=== PATIENT | female | born 1980 | race Caucasian/White ===

== ENCOUNTER 2023-10-04 10:43 | Emergency (ER) | payer OTHER, SELFPAY ==
[2023-10-04] VITALS (14 sets, daily range): BP systolic 103–112; BP diastolic 57–76; PULSE 63–68; RESP 11–20; TEMP 37; O2SAT 95–98; BMI 30.9
--- NOTE | 2023-10-04 11:16 | DI.RAD.S_ITS ---
PROCEDURE: XR CHEST 1V INDICATIONS: chest pain TECHNIQUE: One view of the chest was acquired. COMPARISON: None. FINDINGS: Surgical changes and devices: Left chest wall generator with intravenous lead. Lungs and pleura: Lungs are clear. No pleural effusions or pneumothorax. Mediastinum: Mediastinal contours appear normal. Heart size is normal. Bones and chest wall: No suspicious bony lesions. Overlying soft tissues appear unremarkable. IMPRESSION: No acute cardiopulmonary abnormality is seen. Dictated by: Remigio Stuart M.D. on 10/04/2023 at 12:35 Approved by: Remigio Stuart M.D. on 10/04/2023 at 12:35
--- NOTE | 2023-10-04 11:21 | DI.CT.S_ITS ---
PROCEDURE: CT FACIAL BONES WO CON INDICATIONS: syncope, bruising pain, increased pain every where, hx defib TECHNIQUE: Noncontrast 2.5 mm thick axial images acquired from the mandible through the frontal sinuses, with coronal and sagittal reformatting. For radiation dose reduction, the following was used: automated exposure control, adjustment of mA and/or kV according to patient size. COMPARISON: None. FINDINGS: Image quality: Excellent. Bones and teeth: Orbital garcia are intact. Sinus garcia show no fracture or deformity. Nasal bones and septum are intact. Visualized portions of the mandible demonstrate no fractures or subluxation. Zygomatic arches are intact. Pterygoid plates are intact. Visualized portions of the skull base and auditory canals are intact. Poor dentition, with multiple caries. Sinuses: Paranasal sinuses are aerated, without fluid levels, mucosal thickening, or mucoceles. Mastoid air cells are aerated. Soft tissues: Right-sided periorbital hematoma, without intraorbital extension. Vascular: Visualized vascular structures appear normal in the absence of contrast. Bony vascular foramina and canals are intact. IMPRESSION: Right-sided periorbital hematoma, without intraorbital extension. Dictated by: Remigio Stuart M.D. on 10/04/2023 at 12:46 Approved by: Remigio Stuart M.D. on 10/04/2023 at 12:48
--- NOTE | 2023-10-04 11:21 | DI.CT.S_ITS ---
PROCEDURE: CT ABDOMEN PELVIS W CON INDICATIONS: syncope, bruising pain, increased pain every where, hx cva TECHNIQUE: After the administration of intravenous contrast, axial sections acquired from the lung bases to the pubic symphysis. Coronal and sagittal reformats were performed. For radiation dose reduction, the following was used: automated exposure control, adjustment of mA and/or kV according to patient size. COMPARISON: None. FINDINGS: Image quality: Diagnostic. Lower Chest: No significant findings. ABDOMEN: Liver: No solid mass. Gallbladder: Cholelithiasis without wall thickening or adjacent fat stranding to suggest acute cholecystitis. Biliary ducts: No biliary dilation. Pancreas: No ductal dilation. Spleen: Size is within normal limits. Adrenal Glands: No adrenal nodules. Kidneys and Ureters: No hydronephrosis. No solid mass. No complex renal cystic lesion which requires follow up. Stomach and Bowel: Normal colonic caliber, without significant wall thickening. Appendix not identified, but there is no pericecal fat stranding to suggest appendicitis. Colonic diverticulosis without evidence of diverticulitis. Peritoneum: No abnormal intraperitoneal fluid. No free air. Ventral Wall: No significant ventral hernia. Abdominal Nodes: No retroperitoneal or mesenteric adenopathy by size criteria. Vessels: Aorta and inferior vena cava are normal in size. PELVIS: Pelvic Organs: Left ovarian cystic lesion with thin internal septations measuring 9.0 x 11.5 cm. Bladder: No bladder wall thickening, accounting for underdistention. Pelvic Nodes: No enlarged lymph nodes. Miscellaneous: No inguinal hernias are seen. Bones: No aggressive osseous abnormality. IMPRESSION: No acute abnormality. Left ovarian cystic lesion with thin internal septations measuring 9.0 x 1.5 cm. 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 Recommend gynecologic oncology referral for further management. Cholelithiasis without wall thickening or adjacent fat stranding to suggest acute cholecystitis. No nephrolithiasis. No diverticulitis. Dictated by: Remigio Stuart M.D. on 10/04/2023 at 12:54 Approved by: Remigio Stuart M.D. on 10/04/2023 at 12:59
--- NOTE | 2023-10-04 11:21 | DI.CT.S_ITS ---
PROCEDURE: CT CERVICAL SPINE WO CON INDICATIONS: syncope, bruising pain, increased pain every where, hx cva TECHNIQUE: Noncontrast 3 mm thick sections acquired from the skull base to the T4 level. Sagittal and coronal reformats were then constructed. For radiation dose reduction, the following was used: automated exposure control, adjustment of mA and/or kV according to patient size. COMPARISON: None. FINDINGS: Image quality: Excellent. Bones: No fractures or dislocations. Visualized superior ribs are intact. 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 Soft tissues: Prevertebral soft tissues are normal in thickness. No paravertebral hematomas. No apical pneumothoraces. IMPRESSION: No displaced fracture or traumatic subluxation. Moderate spinal canal narrowing at C6-7 and C5-6 due to posterior longitudinal ligament calcification. Dictated by: Remigio Stuart M.D. on 10/04/2023 at 12:42 Approved by: Remigio Stuart M.D. on 10/04/2023 at 12:46
--- NOTE | 2023-10-04 11:21 | DI.CT.S_ITS ---
PROCEDURE: CT HEAD/BRAIN WO CON INDICATIONS: syncope, bruising pain, increased pain every where, hx cva TECHNIQUE: Noncontrast 4.5 mm thick angled axial sections acquired from the foramen magnum to the vertex, with coronal and sagittal reformats. For radiation dose reduction, the following was used: automated exposure control, adjustment of mA and/or kV according to patient size. COMPARISON: None. FINDINGS: Image quality: Suboptimal due to motion artifact. CSF spaces: Basal cisterns are patent. No extra-axial fluid collections. Ventricles are normal in size and shape. Brain: No midline shift. No intracranial masses or hemorrhage. Nye-white matter interface is normal. Prior right MCA territory infarct, with encephalomalacia. Skull and face: Periorbital hematoma. Sinuses: Visualized sinuses and mastoids are clear. IMPRESSION: No acute intracranial pathology. Periorbital hematoma. Dictated by: Remigio Stuart M.D. on 10/04/2023 at 12:33 Approved by: Remigio Stuart M.D. on 10/04/2023 at 12:34
--- NOTE | 2023-10-04 11:21 | DI.CT.S_ITS ---
PROCEDURE: CT ANGIO CHEST PE PROTOCOL INDICATIONS: syncope, bruising pain, increased pain every where, hx cva TECHNIQUE: After the administration of intravenous contrast, 2 mm thick sections acquired from the pulmonary apices to the posterior costophrenic angles. 3-dimensional maximum intensity projection (MIP) coronal and sagittal reformats were then acquired through the thorax. For radiation dose reduction, the following was used: automated exposure control, adjustment of mA and/or kV according to patient size. COMPARISON: None. FINDINGS: Image quality: Suboptimal due to motion artifact. Pulmonary arteries: Pulmonary arteries are normal in size, and demonstrate no intraluminal filling defects to suggest central pulmonary embolism. Lower Neck: No enlarged lymph nodes. Thyroid: No thyroid nodules which require sonographic follow up, per consensus guidelines. Axillae: No enlarged lymph nodes. Chest Wall: Left chest wall generator with intravenous lead. Bones: Unremarkable. Lungs and Pleura: No pneumothorax or pleural effusions. No consolidation or suspicious nodules. Heart: Heart size is normal. No pericardial effusion. Thoracic Vessels: No aortic aneurysm. Mediastinum and [place]: No enlarged lymph nodes. Esophagus: No wall thickening. No hiatal hernia. Upper Abdomen: Visualized upper abdomen solid organs and bowel loops appear normal. IMPRESSION: Moderately suboptimal evaluation due to motion artifact. No pulmonary embolus. No acute cardiopulmonary process. Dictated by: Remigio Stuart M.D. on 10/04/2023 at 12:48 Approved by: Remigio Stuart M.D. on 10/04/2023 at 12:50
--- NOTE | 2023-10-04 11:23 | ED.SYNCOPE ---
HPI - Syncope General Chief Complaint: Syncope Stated Complaint: Syncope Time Seen by Provider: 10/04/23 10:45 Source: patient, family and EMS Mode of arrival: EMS Limitations: no limitations History of Present Illness HPI narrative: 42-year-old female who presents with complaint of possible syncopal episode. Patient states she has had some dizziness on and off as well as some chest discomfort for the past several days describes occasional shortness of breath. Today she was standing on her deck she states she felt dizzy went to use her vape and woke up on the deck. Patient has bruising around her right eye, no decreased vision. She describes pain everywhere. She has had problems with hyperesthesia after a stroke particularly on the left side with chronic left-sided deficit and amaya-neglect. Patient describes pain in her neck as well as her back. She describes no chest pain currently but on and off over the past several days and last night some persistent shortness of breath and dizziness but no recent syncope. She had some nausea but no vomiting. She denies any diarrhea or constipation, no loss of bowel or bladder control no recent urinary symptoms. Patient does not recall her defibrillator firing. She did have contact from the team for her defibrillator who stated that she had an event unclear if it was her pacemaker or defibrillator but they had called her about 2 weeks ago that it had gone off in her sleep. Patient is on aspirin daily no other anticoagulants, she is on carvedilol as well as multiple medications for neuropathy a/paresthesias. She has had a prior stroke with left-sided deficit secondary to her device placement per family. Patient has had prior pacemaker/defibrillator no cardiac stents, she has had . No known drug allergies. She does vape tobacco, occasional alcohol but denies any today. No recreational drugs or marijuana but uses CBD on occasion. Her Road Equipment Operator was Dr. Lomas who placed her device at [facility]. She has recently established with Dr. Baum for cardiology. Primary care is Patient arrived via EMS had 2 mg of morphine but her blood pressure dropped to the 80s so had not had any additional did have 500 mL of saline. They report no pacing or bearing of defibrillator. Patient has had present at bedside also gives additional history. Related Data Home Medications Medication Instructions Recorded Confirmed aspirin 81 mg tablet 81 mg PO DAILY 10/04/23 10/04/23 carvedilol 3.125 mg tablet 3.125 mg PO BID 10/04/23 10/04/23 duloxetine 30 mg capsule,delayed 30 mg PO QPM 10/04/23 10/04/23 release (Cymbalta) pregabalin 200 mg capsule 200 mg PO 3XD 10/04/23 10/04/23 sennosides 8.6 mg-docusate sodium 1 tab-cap PO BEDTIME 10/04/23 10/04/23 50 mg tablet topiramate 50 mg tablet 50 mg PO DAILY 10/04/23 10/04/23 Allergies Allergy/AdvReac Type Severity Reaction Status Date / Time No Known Drug Allergies Allergy Verified 10/04/23 11:59 Review of Systems Review of Systems ROS Unobtainable: All systems reviewed & are unremarkable except as noted in HPI and below Patient History Social History Smoking Status: Current every day smoker Smoking Status: Current every day smoker tobacco type: vaping alcohol intake frequency: 0-2 drinks per day Substance Use Type: does not use Exam Narrative Exam Narrative: GEN: C-collar prior to arrival. Patient appears in moderate distress. HEAD: No evidence of trauma, no raccoon/[place] sign. NECK: Nontender, painless range of motion, trachea midline Positive for Nexus criteria, no line tenderness, positive for distracting injury, no altered mental status, neuro deficit, recent EtOH. EYES: PERRLA, EOMI ENT: External inspection normal, trachea is midline, TM's are normal no hemotypanum, Nares are clear, no septal hematoma, no dental or oral injury, airway is normal and with normal occlusion, No bony tenderness RESP: Chest is nontender and has symmetric movement, no ecchymosis, breath sounds are normal no crackles, wheezes or rales CVS: Heart sounds are normal, no murmur noted, No JVD. ABG/GI: Nontender, soft, normal bowel sounds, no distention, no organomegaly, pelvic rock is negative NEURO: Oriented AOx3, neuro is grossly intact, sensation and motor is normal all 4 extremities moving, cranial nerves II through XII are intact, GCS is 15 PSYCH: Normal mood and affect SKIN: Intact, warm and dry, no crepitus and without decubitus BACK: No CVA tenderness, no vertebral tenderness, no step-off's, no crepitus EXT: Atraumatic, patient does not have any tenderness to legs but is very hypersensitive to any very light touch even access to her line across her upper extremities, but also generalized. She does have movement of bilateral extremities little bit less of her left upper arm. No pedal edema, normal color and temperature Initial Vital Signs Initial Vital Signs: Vital Signs Temperature 98.6 F 10/04/23 10:40 Pulse Rate 65 10/04/23 10:40 Respiratory Rate 20 10/04/23 10:40 Blood Pressure 112/76 10/04/23 10:40 Pulse Oximetry 98 10/04/23 10:40 Oxygen Delivery Method Room Air 10/04/23 10:40 Course Orders Ordered: ED Orders 10/04/23 11:16 XR chest 1V Stat 10/04/23 11:21 CT abdomen pelvis w con Stat CT angio chest PE protocol Stat CT cervical spine wo con Stat CT facial bones wo con Stat CT head/brain wo con Stat 10/04/23 11:25 Complete Blood Count AUTO DIFF Stat Comprehensive Metabolic Panel Stat ETOH [Ethanol (ETOH)] Stat Lipase Stat Magnesium Stat PTT Partial Thromboplastin Alli Stat Prothrombin Time INR Stat Troponin & CK Cardiac Panel Stat 10/04/23 13:02 EKG-12 Lead Stat 10/04/23 13:20 Trop I [Troponin I] Stat Ondansetron HCl (Ondansetron 4 Mg/2 Ml Inj) 4 mg IV Q6HR PRN PRN Reason: Nausea And Vomiting Sodium Chloride (Sodium Chloride 0.9% Flush) 10 ml IV BID NORMAN Sodium Chloride (Sodium Chloride 0.9% Flush) 10 ml IV PRN PRN PRN Reason: Flush Last Admin: 10/04/23 11:30 Dose: 10 ml Documented By: WU Discontinued Medications Acetaminophen (Acetaminophen 325 Mg Tablet) 975 mg PO NOW ONE Stop: 10/04/23 18:42 Last Admin: 10/04/23 18:49 Dose: 975 mg Documented By: CELINE Fentanyl (Fentanyl 100 Mcg/2 Ml Inj) 50 mcg IV NOW ONE Stop: 10/04/23 11:22 Last Admin: 10/04/23 11:30 Dose: 50 mcg Documented By: WU Sodium Chloride (Normal Saline 0.9%) 1,000 mls @ 1,000 mls/hr IV BOLUS ONE Stop: 10/04/23 12:20 Last Infusion: 10/04/23 12:58 Dose: Infused Documented By: Admin: 10/04/23 11:31 Dose: 1,000 mls/hr Documented By: WU Calcium Gluconate 4.65 meq/ (Sodium Chloride) 60 mls @ 180 mls/hr IV NOW ONE Stop: 10/04/23 12:45 Last Infusion: 10/04/23 14:33 Dose: Infused Documented By: Admin: 10/04/23 14:04 Dose: 180 mls/hr Documented By: WU Ketorolac Tromethamine (Ketorolac 30 Mg/Ml Vial) 15 mg IV NOW ONE Stop: 10/04/23 13:58 Last Admin: 10/04/23 14:14 Dose: 15 mg Documented By: CELINE Lorazepam (Lorazepam 2 Mg/Ml Inj) 1 mg IV NOW ONE Stop: 10/04/23 12:00 Last Admin: 10/04/23 12:06 Dose: 1 mg Documented By: POORNIMA Morphine Sulfate (Morphine 4 Mg/Ml Inj) 4 mg IV NOW ONE Stop: 10/04/23 13:57 Last Admin: 10/04/23 14:14 Dose: 4 mg Documented By: CELINE Vital Signs Vital signs: Vital Signs - 8 hr 10/04/23 17:00 10/04/23 17:30 10/04/23 18:00 Pulse Rate 63 63 64 Respiratory Rate 13 13 13 Blood Pressure Pulse Oximetry 97 97 96 10/04/23 18:30 10/04/23 18:35 10/04/23 18:35 Pulse Rate 66 67 Respiratory Rate 13 12 Blood Pressure 103/58 L Pulse Oximetry 96 98 MDM - Syncope Lab Data 10/04/23 11:25 10/04/23 11:25 Labs: Lab Results 10/04/23 10/04/23 Range/Units 11:25 13:20 WBC 8.5 (4.5-11.0) X10^3/uL RBC 4.63 (4.0-5.2) X10^6/uL Hgb 11.1 L (12.0-16.0) g/dL Hct 34.5 L (36-46) % MCV 74.5 L (80-100) fL MCH 23.9 L (26-34) PG MCHC 32.1 (30-36) % RDW 18.5 H (11.6-14.8) % Plt Count 296 (150-400) X10^3/uL Neut % (Auto) 77.1 H (50-75) % Lymph % (Auto) 13.8 L (25-40) % [place] % (Auto) 6.1 (3-14) % Eos % (Auto) 1.0 L (2-4) % Baso % (Auto) 2.0 (0-2) % Neut # (Auto) 6600 (4112-5904) /uL Lymph # (Auto) 1200 (7193-9181) /uL [place] # (Auto) 500 (0-900) /uL Eos # (Auto) 100 (0-450) /uL Baso # (Auto) 200 H (0-100) /uL PT 11.5 (9.4-12.5) SECONDS INR 1.0 (0.9-1.3) APTT 31 (25.1-36.5) SECONDS Sodium 140 (137-145) mmol/L Potassium 4.3 (3.4-5.1) mmol/L Chloride 115 H (98-107) mmol/L Carbon Dioxide 18 L (22-32) mmol/L BUN 11 (7-17) mg/dL Creatinine 0.63 (0.52-1.04) mg/dL Estimated GFR > 60 (>60) mL/min BUN/Creatinine Ratio 17.5 (6-22) Glucose 95 (70-100) mg/dL Calcium 7.9 L (8.4-10.2) mg/dL Magnesium 2.2 (1.6-2.3) mg/dL Total Bilirubin 0.3 (0.2-1.3) mg/dL AST 29 (14-36) IU/L ALT 34 (<35) IU/L Alkaline Phosphatase 57 (38-126) U/L Total Creatine Kinase 109 (30-135) U/L Troponin I < 0.012 < 0.012 (0.01-0.034) ng/mL Total Protein 6.5 (6.3-8.2) g/dL Albumin 3.7 (3.5-5.0) g/dL Globulin 2.8 (1.7-4.1) g/dL Albumin/Globulin Ratio 1.3 (1.0-2.8) Lipase 125 (23-300) U/L Ethyl Alcohol < 10 ( - 10) mg/dL ECG Data Attestation: I personally reviewed and interpreted this ECG as follows: Prior ECG tracings: not available for review Interpretation: Sinus rhythm rate of 77 GA 172 QRS is 70 QTC of 445. No acute ST elevation or depression. I do not have any priors for comparison. MDM Narrative Medical decision making narrative: 42-year-old female what had sounds like a syncopal episode patient does have a cardiac history had cardiac arrest has a defibrillator pacemaker in place she was told they never found the cause. Patient did have a stroke after interventions and has chronic left weakness, neglect, [place] paresthesias. She is complaining now of right and left upper extremity pain with any sort of light touch very similar to her left side as well as generalized pain throughout. Patient was hypotensive in the field per EMS did receive 2 mg of morphine which made her more so and 500 mL bolus of fluid. She is received fluids here has had improvement. Patient had head CT which shows chronic changes but no acute change, CT C-spine which shows no obvious fracture, facial bones which show hematoma/bruising but no fracture, CT abdomen pelvis and CT PE which show no blood clot but do show a left ovarian cyst with septations measuring 9 x 1.5 cm concerning for mucinous neoplasm and needs follow up with Gynecology/Oncology as well as cholelithiasis without wall thickening or fat stranding. Did discuss with patient's that she does need follow-up for the large ovarian cyst. Labs show hemoglobin of 11 white count 8.5, appears to be microcytic platelets of 296. Coags are negative, sodium is 140 potassium 4.3 chloride 114 with a CO2 of 18 BUN of 11 creatinine 0.63 calcium 7.9 Mag was 2.2 with total CK of 109- troponin negative LFTs. ETOH is less than 10. Troponin was repeated and is negative. EKG shows sinus rhythm. Patient has pacemaker/defibrillator was interrogated, shows 1 shock at 9:14 a.m. today which is consistent with a when patient had her syncopal episode. Patient did have loss of consciousness and does not recall the shock. Spoke with cardiology, Dr. Martinez, reviewed interrogation patient had shock but not ATP. Dr. Martinez reviewed with tech. She would like for patient to be transferred to [facility] for antiarrhythmic therapy. Would like for us to hold off on any amiodarone would prefer sotalol or mexilatine but asked that we hold off until patient has transferred. She does recommend a PCU bed. If patient were to become unstable she would prefer lidocaine for antiarrhythmic. SPoke with Dr. Orozco, hospitalist at [facility] accepts for transfer. Patient signed out to Dr. Brunson while awaiting transfer. Discussed recommendations from cardiology. Goal for transfer. Discharge Plan Departure Patient Disposition: [facility] Clinical Impression: Syncope, Idiopathic ventricular fibrillation, Ovarian cyst Prescriptions: No Action sennosides-docusate sodium [Senna Laxative-Stool Softener] 8.6-50 mg Tablet 1 tab-cap PO BEDTIME carvedilol 3.125 mg tablet 3.125 mg PO BID aspirin 81 mg Tablet 81 mg PO DAILY topiramate 50 mg tablet 50 mg PO DAILY duloxetine [Cymbalta] 30 mg capsule,delayed release(DR/EC) 30 mg PO QPM pregabalin 200 mg capsule 200 mg PO 3XD
[2023-10-04] MEDS: fentaNYL 100 MCG/2 ML INJ 50 MCG IV (11:30)
[2023-10-04] MEDS: SODIUM CHLORIDE 0.9% FLUSH 10 ML IV (11:30)
[2023-10-04] MEDS: SODIUM CHLORIDE 0.9% 1,000 ML 1000 ML IV (11:31)
[2023-10-04 11:35] LABS: Add Manual Diff / Slide Review NO; Basophils Absolute Auto 200 /uL (0-100); Eosinophils Absolute Auto 100 /uL (0-450); Hematocrit 34.5 % (36-46); Hemoglobin 11.1 g/dL (12.0-16.0); Lymphocytes Absolute Auto 1200 /uL (1100-4500); Lymphocytes Percent Auto 13.8 % (25-40); Mean Corpuscular HGB Conc 32.1 % (30-36); Mean Corpuscular Hemoglobin 23.9 PG (26-34); Mean Corpuscular Volume 74.5 fL (80-100); Monocytes Absolute Auto 500 /uL (0-900); Monocytes Percent Auto 6.1 % (3-14); Neutrophils Absolute Auto 6600 /uL (1500-7000); Neutrophils Percent Auto 77.1 % (50-75); Platelet Count 296 X10^3/uL (150-400); Red Blood Cell Count 4.63 X10^6/uL (4.0-5.2); Red Cell Distribution Width 18.5 % (11.6-14.8); White Blood Cell Count 8.5 X10^3/uL (4.5-11.0)
[2023-10-04 11:40] LABS: Prothrombin Time 11.5 SECONDS (9.4-12.5)
[2023-10-04 11:43] LABS: PTT Partial Thromboplastin Tim 31 SECONDS (25.1-36.5)
[2023-10-04 11:44] LABS: Alanine Aminotransferase 34 IU/L (<35); Albumin 3.7 g/dL (3.5-5.0); Albumin Globulin Ratio 1.3 (1.0-2.8); Alkaline Phosphatase 57 U/L (38-126); Aspartate Aminotransferase 29 IU/L (14-36); BUN Creatinine Ratio 17.5 (6-22); Bilirubin Total 0.3 mg/dL (0.2-1.3); Blood Urea Nitrogen 11 mg/dL (7-17); Calcium 7.9 mg/dL (8.4-10.2); Carbon Dioxide 18 mmol/L (22-32); Chloride 115 mmol/L (98-107); Creatine Kinase 109 U/L (30-135); Estimated Glomerular Filt Rate > 60 mL/min (>60); Globulin 2.8 g/dL (1.7-4.1); Glucose 95 mg/dL (70-100); HEMOLYSIS < 15 (0-50); Lipase 125 U/L (23-300); Magnesium 2.2 mg/dL (1.6-2.3); Potassium 4.3 mmol/L (3.4-5.1); Sodium 140 mmol/L (137-145); Total Protein 6.5 g/dL (6.3-8.2)
--- NOTE | 2023-10-04 11:44 | PC.NURSE ---
Pt arrived to ED via [facility] for syncopal episode. Pt went outside to use her vape and fainted. Does not remember falling but hit her head. C/o 10/10 pain in her head, neck, bilateral UE, and complains that she has numbness and tingling bilaterally in LE and arrived to dept in c-spine precautions. Pt has full ROM in all 4 extremities and neuro intact. Pt a&ox4 and answers all questions appropriately. Pt arrived to ED shouting in pain. EMS reports giving 2mg of morphine during transport and pt reports no pain relief. Pt has hx of stroke, defib pacemaker and DE. Dr Ospina at bedside during triage.
[2023-10-04 11:45] LABS: Ethanol (ETOH) < 10 mg/dL
[2023-10-04 11:56] LABS: Troponin I < 0.012 ng/mL (0.01-0.034)
[2023-10-04] MEDS: LORazepam 2 MG/ML INJ 1 MG IV (12:06)
--- NOTE | 2023-10-04 13:40 | PC.NURSE ---
Addendum entered by Mode Ren R.N. 10/04/23 15:21: Pt reports information sent to [employer]. Called [employer] and spoke to Stormy who said the information would be faxed over to [phone]. Original Note: Attempted to interrogate patient's implantable Terell device. Unsuccessful. Called [employer] help line who stated device was so new and needed to be interrogated using patient's livia on their phone. Then told to call [employer] back and they will fax over information once sent. Told patient and she said she would use the livia to interrogate the device.
[2023-10-04 13:48] LABS: Troponin I < 0.012 ng/mL (0.01-0.034)
[2023-10-04] MEDS: CALCIUM GLUCONATE 4.65 MEQ in SODIUM CHLORIDE 0.9% 50 ML 180 MEQ IV (14:04)
[2023-10-04] MEDS: MORPHINE 4 MG/ML INJ IV (14:14)
[2023-10-04] MEDS: KETOROLAC 30 MG/ML VIAL 15 MG IV (14:14)
--- NOTE | 2023-10-04 15:58 | PC.NURSE ---
Pt c/o 03/17 pain and that she has numbness and tingling in her legs and feet. Pt asked for bedpan and unable to urinate while sitting on bedpan. States that she is too weak and tired to try using the commode and states that she cannot move her LE. Neuro exam performed and pt has equal sensation bilaterally on UE & LE and shouted in pain when legs were touched. Dr Ospina notified of pt status. Pt a&ox4.
[2023-10-04] MEDS: ACETAMINOPHEN 325 MG TABLET 975 MG PO (18:49)
--- NOTE | 2023-10-04 19:35 | PC.NURSE ---
Allowed pt to sleep.
--- NOTE | 2023-10-04 21:09 | PC.NURSE ---
Report given to [facility] [employer] [phone]
[2023-10-04] MEDS: OXYCODONE IR 5 MG TABLET PO (21:18)
== END 2023-10-04 22:38 | disposition short-term general hospital (02) ==
PROVIDERS: Emergency Provider Emergency Medicine
DX: R55 Syncope and collapse (principal); I49.01 Ventricular fibrillation; N83.202 Unspecified ovarian cyst, left side; R07.9 Chest pain, unspecified; Z95.0 Presence of cardiac pacemaker
CPT/HCPCS: 36415; 70450; 70486; 71045; 71275; 72125; 74177; 80053; 80320; 82550; 83690; 83735; 84484; 85025; 85610; 85730; 93005; 96361; 96374; 96375; 99284; J0612; J1885; J2060; J2270; J3010; Q9967

== ENCOUNTER 2024-05-10 04:28 | Emergency (ER) | payer OTHER, MEDICAID, SELFPAY ==
[2024-05-10 04:33] VITALS: BP 113/73; PULSE 94; RESP 24; O2SAT 100
--- NOTE | 2024-05-10 04:34 | DI.CT.S_ITS ---
PROCEDURE: CT CERVICAL SPINE WO CON INDICATIONS: GLF ON ELIQUIS, HEAD INJ TECHNIQUE: Noncontrast 3 mm thick sections acquired from the skull base to the T4 level. Sagittal and coronal reformats were then constructed. For radiation dose reduction, the following was used: automated exposure control, adjustment of mA and/or kV according to patient size. COMPARISON: [facility], CT, CT CERVICAL SPINE WO CON, 10/04/2023, 11:43. FINDINGS: Image quality: Excellent. Bones: Remote multilevel posterior decompressive laminectomy spanning from C4 through C7 with posterior lateral sebas and facet screw fixation at C4 through C6 and ACDF at C4 through C7. No evidence of hardware failure or loosening. No fractures or dislocations. Visualized superior ribs are intact. Soft tissues: Prevertebral soft tissues are normal in thickness. No paravertebral hematomas. No apical pneumothoraces. IMPRESSION: 1. No acute displaced cervical fracture or traumatic subluxation. 2. Expected appearance of surgical hardware. Comment: Final report is concordant with preliminary interpretation provided by [facility]. Dictated by: Cristian Sharif M.D. on 05/10/2024 at 7:43 Approved by: Cristian Sharif M.D. on 05/10/2024 at 7:49
--- NOTE | 2024-05-10 04:35 | DI.CT.S_ITS ---
PROCEDURE: CT HEAD/BRAIN WO CON INDICATIONS: GLF, HEAD INJ ON ELIQUIS TECHNIQUE: Noncontrast 4.5 mm thick angled axial sections acquired from the foramen magnum to the vertex, with coronal and sagittal reformats. For radiation dose reduction, the following was used: automated exposure control, adjustment of mA and/or kV according to patient size. COMPARISON: [facility], CT, CT HEAD/BRAIN WO CON, 10/04/2023, 11:43. FINDINGS: Image quality: Diagnostic. CSF spaces: Basal cisterns are patent. No extra-axial fluid collections. The ventricles are symmetric in size and shape. Brain: Stable findings. No intracranial bleeds or masses. There is cerebral volume loss for age, with resultant ventricular and sulcal prominence. There are periventricular and deep white matter chronic small vessel ischemic changes. Old moderately large right MCA distribution infarct with encephalomalacia. There is intracranial internal carotid artery atherosclerosis. Skull and face: Calvarium and visualized facial bones appear intact, without suspicious lesions. Sinuses: Visualized sinuses and mastoids are clear. IMPRESSION: Stable findings. Old right MCA distribution infarct. No acute intracranial process. Comment: Final report is concordant with preliminary interpretation provided by [facility]. Dictated by: Cristian Sharif M.D. on 05/10/2024 at 7:41 Approved by: Cristian Sharif M.D. on 05/10/2024 at 7:43
--- NOTE | 2024-05-10 04:36 | EKG_ITS ---
[address] [address] Test Date: 2024-05-10 Pat Name: Yulissa Watson Department: [facility] Room: Gender: Female Patient Account Liaison: CARLA : 1980 Requested By: Order Number: [id number] Reading MD: Modesto Salmeron MD Measurements Intervals [place] Rate: 69 P: 41 ND: 144 QRS: 47 QRSD: 72 T: 51 QT: 472 QTc: 505 Interpretive Statements Normal sinus rhythm Nonspecific T wave abnormality Electronically Signed On 05-10-2024 10:35:57 PST by Modesto Salmeron MD
--- NOTE | 2024-05-10 04:37 | ED.SYNCOPE ---
HPI - Syncope <Samantha Brunson MD - Last Filed: 05/10/24 20:28> General Chief Complaint: Trauma Stated Complaint: Fall Time Seen by Provider: 05/10/24 04:33 History of Present Illness HPI narrative: 43yoF with PMH V-fib arrist s/p AICD in place on Eliquis (placed by Dr. Lomas at [facility]) presents by EMS from home for syncopal episode. Hx obtained mostly from EMS as patient arrived extremely agitated, yelling at EMS staff and screaming at ED staff to leave the ED room. Per EMS the patient was getting up from the toilet when she had a syncopal episode. Patient repeatedly attempting to remove her C-collar on arrival telling EMS you're not the boss, I'M THE BOSS. When asked to verify name and date of patient told reverse unit operator fuck off I'm not telling you shit. Patient screaming at myself and nursing staff, refusing vitals and demanding that her come back to the room. Records obtained from [facility] by Dr. Baum provide more PMH. Cardiology encounter dated 12/25/2023: 43yoF Caucasion female with V-fib cardiac arrest August 2022 attributed possibly to vaping. No CAD on subsequent heart catheterization (08/24/22). [facility] single-chamber AICD insertion at [facility], iatrogenic right internal carotid artery thrombus due to right carotid artery puncture at the time of VFib resuscitation at [facility], large Right MCA territory infarct s/p thrombectomy, hypertriglyceridemia. [facility] admission on October 04, 2023 due to VFib episode in the setting of vaping, at that time also found to have pulmonary embolism and cervical cord compression. Patient was initiated on mexiletine at [facility]. Subsequently transferred to [facility]. IVC filter placed 10/09/23 followed by C4-6 PSIF 10/13/23. After patient's surgery she had recurrence of V-fib on mexilitine and so mexilitine was discontinued and she was initiated on quinidine on November 09, 2023. At time of cardiology consultation on 12/24 patient was doing well on quinidine. At that time patient was being evaluated at [facility] for possible VFib ablation. Related Data Home Medications Medication Instructions Recorded Confirmed aspirin 81 mg tablet 81 mg PO DAILY 10/04/23 10/04/23 carvedilol 3.125 mg tablet 3.125 mg PO BID 10/04/23 10/04/23 duloxetine 30 mg capsule,delayed 30 mg PO QPM 10/04/23 10/04/23 release (Cymbalta) pregabalin 200 mg capsule 200 mg PO 3XD 10/04/23 10/04/23 sennosides 8.6 mg-docusate sodium 1 tab-cap PO BEDTIME 10/04/23 10/04/23 50 mg tablet topiramate 50 mg tablet 50 mg PO DAILY 10/04/23 10/04/23 Allergies Allergy/AdvReac Type Severity Reaction Status Date / Time No Known Drug Allergies Allergy Verified 10/04/23 11:59 Patient History <Samantha Brunson MD - Last Filed: 05/10/24 20:28> Social History Smoking Status: Current every day smoker Smoking Status: Current every day smoker tobacco type: vaping alcohol intake frequency: 0-2 drinks per day Substance Use Type: does not use Exam <Samantha Brunson MD - Last Filed: 05/10/24 20:28> Initial Vital Signs Initial Vital Signs: Vital Signs Pulse Rate 94 H 05/10/24 04:33 Respiratory Rate 24 05/10/24 04:33 Blood Pressure 113/73 05/10/24 04:33 Pulse Oximetry 100 05/10/24 04:33 Oxygen Delivery Method Room Air 05/10/24 04:33 Const: Awake, agitated, yelling at EMS and nursing staff HEENT: No stepoffs, PERRL, C-collar incorrectly in place - patient grabbing at collar to remove the device Cardiac: regular rate, regular rhythm RESP: unlabored, no wheezes GI: Soft, nontender, nondistended Skin: Warm, Dry, intact, no rashes Neuro: Oriented to self, not following commands, moving all extremities <Samantha Ospina DO - Last Filed: 05/10/24 09:42> Initial Vital Signs Initial Vital Signs: Vital Signs Pulse Rate 94 H 05/10/24 04:33 Respiratory Rate 24 05/10/24 04:33 Blood Pressure 113/73 05/10/24 04:33 Pulse Oximetry 100 05/10/24 04:33 Oxygen Delivery Method Room Air 05/10/24 04:33 Course <Samantha Brunson MD - Last Filed: 05/10/24 20:28> Orders Ordered: Discontinued Medications Diphenhydramine HCl (Diphenhydramine 50 Mg/Ml Vial) 50 mg IM NOW ONE Stop: 05/10/24 04:44 Last Admin: 05/10/24 04:52 Dose: 50 mg Documented By: KENISHA Haloperidol (Haloperidol 5 Mg/Ml Vial) 5 mg IM NOW ONE Stop: 05/10/24 04:42 Last Admin: 05/10/24 04:52 Dose: 5 mg Documented By: KENISHA Vital Signs Vital signs: Vital Signs - 8 hr 05/10/24 04:33 05/10/24 08:03 Temperature 97.8 F Pulse Rate 94 H 83 Respiratory Rate 24 16 Blood Pressure 113/73 139/69 Pulse Oximetry 100 98 Oxygen Delivery Method Room Air Room Air <Samantha Ospina DO - Last Filed: 05/10/24 09:42> Orders Ordered: Discontinued Medications Diphenhydramine HCl (Diphenhydramine 50 Mg/Ml Vial) 50 mg IM NOW ONE Stop: 05/10/24 04:44 Last Admin: 05/10/24 04:52 Dose: 50 mg Documented By: KENISHA Haloperidol (Haloperidol 5 Mg/Ml Vial) 5 mg IM NOW ONE Stop: 05/10/24 04:42 Last Admin: 05/10/24 04:52 Dose: 5 mg Documented By: KENISHA Vital Signs Vital signs: Vital Signs - 8 hr 05/10/24 04:33 05/10/24 08:03 Temperature 97.8 F Pulse Rate 94 H 83 Respiratory Rate 24 16 Blood Pressure 113/73 139/69 Pulse Oximetry 100 98 Oxygen Delivery Method Room Air Room Air MDM - Syncope <Samantha Brunson MD - Last Filed: 05/10/24 20:28> ECG Data Interpretation: Normal sinus rhythm at 69 bpm. Normal OR. No ST-T wave changes. MDM Narrative Medical decision making narrative: Patient presenting for syncopal episode at home prior to arrival. History of previous VFib arrest August 2022, with repeat episode 09/2023 on quinidine. Patient arrived agitated, not following commands, despite multiple attempts including minimizing nursing staff and speaking in calm and quiet voices to the patient we were unable to redirect the patient, she continued to scream, refused vitals, and attempting to remove her C-collar. Requesting her at bedside, who we were told is en route, but not currently at the ED. For anxiolysis and agitation IM haldol and benadryl ordered. After IM injection patient much calmer. now at bedside and patient is calm and cooperative. Has been states that recently patient was trialled on extended-release pregabalin for chronic pain. This caused the patient to become extremely ill and she spent 3 days in bed throwing up. In that time she did not take any of her medications including her Eliquis and quinidine. at bedside states that patient had a hysterectomy in February of 2024, and since that time the patient has had numerous passing out episodes. He states that he has gotten notifications on the patient's MyChart stating that she has had multiple arrhythmic episodes. They has been unable to follow up with [facility] cardiology due to multiple issues including the patient's chronic pain and issues with transportation. Patient was calm, however she was adamant that she will not stay in the hospital. She refused IV placement, but consented to blood draw with butterfly needle and AICD interrogation. Case discussed with patient's local in store marketing representative. Patient has had several episodes of SVT, most recently May 09 at 6:14 p.m. patient's device was cleared on 01/25/2024, and she has had no recorded episodes of V-tach since then. [facility] faxed interrogation report - there have been dozens of SVT episodes since 05/06, but no reported events during timing of patient's syncopal episode. 0640 - Patient gave laboratory 1 opportunity to draw blood in a certain location, and when they were not successful patient refused further attempts at blood draw per nursing staff. Pending EP consult. Care of patient signed to Dr. Ospina at [id number] 05/10/2024: Dr. Ospina: Spoke with Dr. Alegria, cardiology at [facility] reviewed patient's interrogation report, no sustained episodes of V-tach/vfib on patient's interrogation last episode of SVT was on May 09, did discuss patient has had multiple short episodes of nonsustained. No shocks delivered. Discussed patient's findings from today were unsuccessful in obtaining blood from the patient so do not have these available. He feels comfortable with the patient discharging home, we will have electrophysiology reach out to the patient today they will review her interrogation as well and discuss next steps with patient and family. Notes patient should expect a phone call later today from electrophysiology.. Patient's head CT and CT cervical spine were reviewed no acute intracranial changes old right MCA distribution infarct. And expected appearance of surgical hardware on CT C-spine. Patient has not had any additional episodes here in the department. Spoke with patient and . Reviewed CT findings, they are comfortable continuing to wave any additional blood work. Reviewed interrogation findings and recommendations from Cardiology. They feel comfortable with this plan. Patient wishes to return home. All questions answered. They are aware of expect a phone call from electrophysiology today for additional eval and next steps and their plan <Samantha Ospina, DO - Last Filed: 05/10/24 09:42> [facility] Narrative Medical decision making narrative: Patient presenting for syncopal episode at home prior to arrival. History of previous VFib arrest August 2022, with repeat episode 09/2023 on quinidine. Patient arrived agitated, not following commands, despite multiple attempts including minimizing nursing staff and speaking in calm and quiet voices to the patient we were unable to redirect the patient, she continued to scream, refused vitals, and attempting to remove her C-collar. Requesting her at bedside, who we were told is en route, but not currently at the ED. For anxiolysis and agitation IM haldol and benadryl ordered. After IM injection patient much calmer. now at bedside and patient is calm and cooperative. Has been states that recently patient was trialled on extended-release pregabalin for chronic pain. This caused the patient to become extremely ill and she spent 3 days in bed throwing up. In that time she did not take any of her medications including her Eliquis and quinidine. at bedside states that patient had a hysterectomy in February of 2024, and since that time the patient has had numerous passing out episodes. He states that he has gotten notifications on the patient's MyChart stating that she has had multiple arrhythmic episodes. They has been unable to follow up with [facility] cardiology due to multiple issues including the patient's chronic pain and issues with transportation. Patient was calm, however she was adamant that she will not stay in the hospital. She refused IV placement, but consented to blood draw with butterfly needle and AICD interrogation. Case discussed with patient's local in store marketing representative. Patient has had several episodes of SVT, most recently May 09 at 6:14 p.m. patient's device was cleared on 01/25/2024, and she has had no recorded episodes of V-tach since then. faxed interrogation report - there have been dozens of SVT episodes since 05/06, but no reported events during timing of patient's syncopal episode. 0640 - Patient gave laboratory 1 opportunity to draw blood in a certain location, and when they were not successful patient refused further attempts at blood draw per nursing staff. Pending EP consult [id number] 05/10/2024: Dr. Ospina: Spoke with Dr. Alegria, cardiology at [facility] reviewed patient's interrogation report, no sustained episodes of V-tach/vfib on patient's interrogation last episode of SVT was on May 09, did discuss patient has had multiple short episodes of nonsustained. No shocks delivered. Discussed patient's findings from today were unsuccessful in obtaining blood from the patient so do not have these available. He feels comfortable with the patient discharging home, we will have electrophysiology reach out to the patient today they will review her interrogation as well and discuss next steps with patient and family. Notes patient should expect a phone call later today from electrophysiology.. Patient's head CT and CT cervical spine were reviewed no acute intracranial changes old right MCA distribution infarct. And expected appearance of surgical hardware on CT C-spine. Patient has not had any additional episodes here in the department. Spoke with patient and . Reviewed CT findings, they are comfortable continuing to wave any additional blood work. Reviewed interrogation findings and recommendations from Cardiology. They feel comfortable with this plan. Patient wishes to return home. All questions answered. They are aware of expect a phone call from electrophysiology today for additional eval and next steps and their plan Discharge Plan Departure Patient Disposition: Home Clinical Impression: Syncope, Closed head injury, AICD (automatic cardioverter/defibrillator) present, Chronic anticoagulation, Refusal of care by patient Activity Restrictions/Additional Instructions: I spoke with your cardiology team at [facility], they feel that is appropriate for you to return home but they are going to have electrophysiology reach out to you today to discuss if there need to be any adjustments to medications or to continue your current therapy. Please return for recurrent episodes lightheadedness or passing out, chest pain, shortness of breath, nausea or vomiting, new swelling of your extremities or other new or concerning changes. Prescriptions: No Action sennosides-docusate sodium [Senna Laxative-Stool Softener] 8.6-50 mg Tablet 1 tab-cap PO BEDTIME carvedilol 3.125 mg tablet 3.125 mg PO BID aspirin 81 mg Tablet 81 mg PO DAILY topiramate 50 mg tablet 50 mg PO DAILY duloxetine [Cymbalta] 30 mg capsule,delayed release(DR/EC) 30 mg PO QPM pregabalin 200 mg capsule 200 mg PO 3XD Referrals: Brittani Castillo ARNP [Primary Care Provider] - Stand Alone Forms: Patient Portal/API/Survey
[2024-05-10 04:40] VITALS: BP 122/70; PULSE 78; RESP 16
[2024-05-10] MEDS: HALOPERIDOL 5 MG/ML VIAL IM (04:52)
[2024-05-10] MEDS: diphenhydrAMINE 50 MG/ML VIAL IM (04:52)
--- NOTE | 2024-05-10 05:30 | PC.NURSE ---
in to attempt to interogate pt's AICD, asked pt's permission, when granted permission, then the pt yelled can't someone else do it you're too rough approached the pt, went to pull pt's shirt back and place the interrogator module on the AICD and the pt screamed you didn't tell me what you were going to do. during the procedure the patient screamed that it was burning to hurry up the hospital coordinator was at the bedside and was attempting to help pt relax.
--- NOTE | 2024-05-10 05:54 | PC.NURSE ---
Upon patient arrival via EMS, this DEGREASER went out to the ambulance bay to greet EMS and verify name and date of with the patient to enter them into the system. At this time, the patient was attempting to take off c-collar. When this DEGREASER asked the patient what their name and date of was she kept yelling in the DEGREASER's face screaming NO, NO, NO as well as stating Fuck off I am not telling you shit until I see my . I am not going in there until I see my , you think that you are the boss? NO I am the boss. This DEGREASER then verified patient name and date of with the Medics while patient continued to yell and scream at ED staff and EMS while entering the room.
--- NOTE | 2024-05-10 06:00 | PC.NURSE ---
lab in to draw blood, pt would only allow one stick and would only allow them to attempt in one place, the tech was unable to obtain any blood and the pt refused any more attempts, Dr Brunson informed
[2024-05-10 08:03] VITALS: BP 139/69; PULSE 83; RESP 16; TEMP 36.6; O2SAT 98
== END 2024-05-10 08:05 | disposition home or self-care (01) ==
PROVIDERS: Emergency Provider Emergency Medicine; PCP Nurse Practitioner
DX: R55 Syncope and collapse (principal); S09.90XA Unspecified injury of head, initial encounter; Z95.810 Presence of automatic (implantable) cardiac defibrillator; Z79.01 Long term (current) use of anticoagulants
CPT/HCPCS: 70450; 72125; 93005; 93010; 96372; 99283; 99284; J1200; J1630